=== PATIENT | male | born 1950 | race Caucasian/White ===

== ENCOUNTER 2021-03-29 11:56 | Emergency (ER) | payer MEDICARE, OTHER, SELFPAY ==
--- NOTE | ~2021-03-29 | XR_ITS ---
EXAMINATION: XR chest ET placement INDICATION: Respiratory failure TECHNIQUE: Portable AP chest at 1221 hours with repeat imaging at 1222 hours COMPARISON: 12/10/2010 FINDINGS: The endotracheal tube is at the origin of the right mainstem bronchus on the first radiogra ph and repositioned to 1.9 cm above the jah on the second radiograph. There are diffuse opacities throughout all lung zones, right greater than left. Cardiomegaly is noted. There is no pleural effusi on or pneumothorax. IMPRESSION: 1. Endotracheal tube 1.9 cm above the jah. 2. Patchy bilateral airspace opacities, consistent with atelectasis and/or pulmonary edema and/or pne umonia. 3. Cardiomegaly. Reviewed, dictated and finalized at location B. IMPRESSION: 1. Endotracheal tube 1.9 cm above the jah. 2. Patchy bilateral airspace opacities, consistent with atelectasis and/or pulm onary edema and/or pneumonia. 3. Cardiomegaly.
[2021-03-29 11:58] VITALS: BP 158/37; RESP 5; TEMP 37.6
--- NOTE | 2021-03-29 11:59 | PC.NURSE ---
HR bradycardic at 32 on monitor car operator. No pulse palpable. Pt has no spontaneous respirations. Code blue called. CPR initiated.
--- NOTE | 2021-03-29 12:13 | ECG_ITS ---
Measurements Intervals [place] Rate: 106 P: NE: 0 QRS: -63 QRSD: 165 T: 44 QT: 324 QTc: 431 Interpretive Statements ATRIAL FIBRILLATION WITH RAPID VENTRICULAR RESPONSE RIGHT BUNDLE BRANCH BLOCK MISPLACED LEAD V6 BASELINE ARTIFACT- V2 ABNORMAL ECG Electronically Signed On 03-29-2021 13:00:56 CDT by Garth Jansen D.O.
--- NOTE | 2021-03-29 12:17 | ED.CPR ---
HPI - CPR General Chief Complaint: Cardiac Arrest/CPR Stated Complaint: unresponsive Time Seen by Provider: 03/29/21 12:13 History of Present Illness HPI narrative: 70 yo male brought in by EMS unresponsive. Found on the front porch by a neighbor. Last seen the night before. EMS found unresponsive with agonal breathing. Glucose of 24. Temperature of 104. D10 given. Continues to be unresponsive on arrival. History limited by medical condition. Related Data Allergies Allergy/AdvReac Type Severity Reaction Status Date / Time No Known Allergies Allergy Mild Verified 12/08/10 23:00 Review of Systems Review of Systems: ROS unobtainable: Yes unobtainable due to medical condition and unobtainable due to mental status PMFSH Past Medical History Medical History (Updated 03/29/21 @ 15:02 by Tadeo Nuno MD) GI bleed HTN (hypertension) Exam Const: General: ill appearing Other: Severe distress. Agonal respirations HENMT: Other: BVM mask in place Eyes: Other: pupils small and sluggish Resp: Other: agonal. breath sounds present bilaterally Cardio: Other: irregular GI: Other: soft Skin: General skin exam: pallor Neuro: Other: unresponsive Extrem: General: edema bilateral (3-4+) Course Course Emergency Course: Shortly after arrival he went int cardiac arrest. RSC was obtained multiple times, but each time it was short lived. NG returned dark blood. Rectal positive as well. hemoglobbin returned at 3.6. He was given 2 units of RBCs. Following this he was in asystole. At this time he was pronounced . I feel that he likely had a large GI bleed and was probably septic on top of this. Vital Signs Vital signs: Vital Signs Temperature 37.6 C H 03/29/21 11:58 Respiratory Rate 5 L 03/29/21 11:58 Blood Pressure 158/37 H 03/29/21 11:58 Temperature 37.6 C H 03/29/21 12:28 Pulse Rate 116 H 03/29/21 12:28 Respiratory Rate 5 L 03/29/21 11:58 Blood Pressure 125/76 03/29/21 12:28 MDM - Cardiac Arrest/CPR Medical Records Attestation: I reviewed the patient's medical records. Lab Data Attestation: I reviewed the patient's lab results. Result diagrams: 03/29/21 12:10 03/29/21 12:10 Labs: Lab Results 03/29/21 03/29/21 03/29/21 Range/Units 12:10 12:10 12:10 WBC 23.1 H (4.5-10.0) K/mm3 RBC 1.86 L (4.6-6.20) M/mm3 Hgb 3.6 L* (14.0-18.0) g/dL Hct 13.9 L* (42.0-52.0) % MCV 74.7 L (80-100) fl MCH 19.4 L (26-34) pg MCHC 25.9 L (32-36) g/dl RDW 22.5 H (11.5-14.5) % Plt Count 496 H (150-375) k/mm3 MPV 10.3 (7.4-10.4) fl Immature Gran % (Auto) Not Reportable Neut % (Auto) Not Reportable Lymph % (Auto) Not Reportable [place] % (Auto) Not Reportable Eos % (Auto) Not Reportable Baso % (Auto) Not Reportable Lymph # (Auto) Not Reportable [place] # (Auto) Not Reportable Eos # (Auto) Not Reportable Baso # (Auto) Not Reportable Abs Immat Gran (auto) Not Reportable Absolute Neuts (auto) Not Reportable Absolute Nucleated RBC Not Reportable Total Counted 100 Neutrophils % (Manual) 12 L (46-73) % Lymphocytes % (Manual) 80.0 H (18-44) % Monocytes % (Manual) 8 (3-9) % Nucleated RBC % Not Reportable Abs Lymphs (Manual) 18.48 H (1.1-4.5) K/mm3 Abs Monocytes (Manual) 1.84 H (0.1-0.90) K/mm3 Nucleated RBCs 6 % Platelet Estimate Slightly increased (Adequate) Hypochromasia 3+ (NORMAL) Anisocytosis 2+ (NORMAL) Ovalocytes 2+ (NORMAL) Helmet Cells 1+ (NORMAL) [place] Cells 1+ (NORMAL) Schistocytes 1+ (NORMAL) Sodium 143 (137-145) mmol/L Potassium 4.1 (3.4-5.0) mmol/L Chloride 111 H (98-107) mmol/L Carbon Dioxide 7 L (22-30) mmol/L Anion Gap 25 H (8-16) mmol/L BUN 60 H (9-20) mg/dL Creatinine 2.40 H (0.7-1.3) mg/dL Estim Creat Clear Calc Not Reportable
[2021-03-29 12:26] LABS: Mean Corpuscular HGB Conc 25.9 g/dl (32-36); Mean Corpuscular Hemoglobin 19.4 pg (26-34); Mean Corpuscular Volume 74.7 fl (80-100); Mean Platelet Volume 10.3 fl (7.4-10.4); Platelet Count Result 496 k/mm3 (150-375); Red Blood Count 1.86 M/mm3 (4.6-6.20); Red Cell Distribution Width 22.5 % (11.5-14.5); White Blood Count 23.1 K/mm3 (4.5-10.0)
[2021-03-29 12:28] VITALS: BP 125/76; PULSE 116; TEMP 37.6
[2021-03-29 12:35] LABS: Hematocrit 13.9 % (42.0-52.0); Hemoglobin 3.6 g/dL (14.0-18.0)
[2021-03-29 12:38] LABS: Ethanol < 10 mg/dL (<10)
[2021-03-29 12:43] LABS: Alkaline Phosphatase 49 U/L (38-126); Anion Gap 25 mmol/L (8-16); Bilirubin,Total 2.3 mg/dL (0.2-1.3); Blood Urea Nitrogen 60 mg/dL (9-20); Calcium 7.7 mg/dL (8.4-10.2); Carbon Dioxide 7 mmol/L (22-30); Chloride 111 mmol/L (98-107); Glucose 91 mg/dL (65-110); Lymphocytes Absolute Manual 18.48 K/mm3 (1.1-4.5); Monocytes Absolute Manual 1.84 K/mm3 (0.1-0.90); Monocytes Percent Manual 8 % (3-9); Neutrophils Percent Manual 12 % (46-73); Nucleated Red Blood Cells 6 %; Potassium 4.1 mmol/L (3.4-5.0); Sodium 143 mmol/L (137-145); Total Cells Counted 100
[2021-03-29 12:44] LABS: Anisocytosis 2+ (NORMAL); Hypochromasia 3+ (NORMAL); Ovalocytes 2+ (NORMAL)
[2021-03-29 12:45] LABS: Burr Cells 1+ (NORMAL); Helmet Cells 1+ (NORMAL)
[2021-03-29 12:46] LABS: Schistocytes 1+ (NORMAL)
--- NOTE | 2021-03-29 12:50 | PC.NURSE ---
2 units of emergent blood received. First unit initiated.
--- NOTE | 2021-03-29 12:55 | PC.NURSE ---
16Fr guthrie catheter placed.
[2021-03-29] MEDS: TRANEXAMIC ACID 1,000 MG/10 ML AMPUL 1000 MG (13:00)
[2021-03-29] MEDS: PANTOPRAZOLE SODIUM IV 40 MG VIAL 80 MG (13:02)
--- NOTE | 2021-03-29 13:10 | PC.NURSE ---
Second unit of blood completed.
[2021-03-29 13:37] LABS: Estimated Glomerular Filt Rate 27; Magnesium 2.4 mg/dL (1.6-2.3); NT Pro B Type Natriuretic Pept > 35000 pg/mL (5-100)
[2021-03-29 13:38] LABS: Aspartate Amino Transferase 2596 U/L (17-59)
[2021-03-29 13:41] LABS: Alanine Aminotransferase 1637 U/L (4-50); CRP 0.6 mg/dL (<1.0); Creatine Kinase 1340 U/L (55-170)
--- NOTE | 2021-03-29 13:44 | PC.NURSE ---
First unit of PRBCs completed. Second unit initiated.
--- NOTE | 2021-03-29 14:40 | PC.NURSE ---
Looping Inspector at bedside.
[2021-03-29 15:27] LABS: Glucose Point of Care 151 mg/dl (65-105)
--- NOTE | 2021-03-29 16:35 | PC.NURSE ---
home arrangements made by pt's family. home on way for transport. All LDAs removed.
== END 2021-03-29 16:56 | disposition expired ==
PROVIDERS: Emergency Provider Emergency Medicine
DX: I46.9 Cardiac arrest, cause unspecified (principal); D50.0 Iron deficiency anemia secondary to blood loss (chronic); I48.91 Unspecified atrial fibrillation; I45.10 Unspecified right bundle-branch block; I10 Essential (primary) hypertension
CPT/HCPCS: 31500; 36415; 36430; 80053; 80307; 82550; 82948; 83735; 83880; 84443; 84484; 85025; 86140; 86850; 86880; 86900; 86901; 86902; 86922; 92950; 93005; 96374; 99285; C9113; J0171; J0461; J2310; J3475; J7030; J7040; J7120; P9016